=== PATIENT | male | born 1935 | race Caucasian/White ===

== ENCOUNTER 2025-01-09 10:37 | Day surgery (SDC) | payer MEDICARE, OTHER, SELFPAY ==
[2025-01-09] VITALS (7 sets, daily range): BP systolic 104–158; BP diastolic 59–94; BMI 24.5
[2025-01-09 11:22] LABS: Hematocrit 34.8 % (39.0-52.0); Hemoglobin 11.9 g/dL (13.0-18.0); Mean Corp Hgb Conc. 34.2 g/dL (33.0-37.0); Mean Corpuscular Hgb 32.7 pg (27.0-31.0); Mean Corpuscular Volume 95.6 fL (80.0-94.0); Mean Platelet Volume 10.2 fL (7.4-10.4); Platelet Count 109 10^3/uL (130-400); Red Blood Cell Count 3.64 10^6/uL (4.70-6.10); Red Cell Dist. Width 15.1 % (11.5-14.5); White Blood Cell Count 7.2 10^3/uL (4.8-10.8)
[2025-01-09 11:30] LABS: Blood Urea Nitrogen 28 mg/dl (9-20); Calcium 9.3 mg/dl (8.4-10.2); Carbon Dioxide 22 mmol/L (22-30); Chloride 113 mmol/L (98-107); Estimated Creatinine Clearance 44 ml/min; Glucose 162 mg/dl (70-99); Potassium 4.4 mmol/L (3.5-5.1); Sodium 144 mmol/L (135-145); eGFR 58.17
[2025-01-09 11:34] LABS: Glucose - Point of Care 151 mg/dl (70-99)
--- NOTE | 2025-01-09 11:43 | W.ICD.CONTRA ---
Post ICD/FIRE HAZARD INSPECTOR-D
-
History of HI?: Yes
LV Function
Left ventricular function study result?: Ejection Fraction >35% - <40%
ACEI/ARB/ARNI
Patient already on ACEI/ARB/ARNI: Yes
Beta-Lenin
Patient already on Beta Lenin: Yes
--- NOTE | 2025-01-09 11:53 | ITS.CL.ICD ---
Twist Tester - ICD
Implantable Cardioverter Defibrillator
Procedure Report:
ICD GENERATOR CHANGE REPORT
Date of Procedure: January 09, 2025
Primary sheet finisher: Dr. Joe sutherland
PROCEDURES:
1. Removal of ICD Generator, 2. ICD Implant
HISTORY:
ICD at battery depletion/replacement indices
Sustained monomorphic VT (Secondary prevention indication)
Ischemic cardiomyopathy
Life expectancy > 1 year
Initial indication for implant is Secondary prevention
'Time-out' was called and confirmed. The patient was prepped and draped in sterile fashion. Lidocaine with epi was used for local anesthesia. An incision was made along the previous incision and the device and leads were carefully dissected from
the pocket. Hemostasis was obtained with electrocautery. The leads were from the device header and tested using an external analyzer. The pocket was liberally irrigated with antibiotic solution. Once testing (see below) showed adequate
and stable function, the leads were connected to the generator header and the leads and generator were placed within the pocket. The pocket was closed in the typical fashion.
Antibiotic pouch placed.
EXISTING ICD [id number], SN [id number] , Left Pectoral
IMPLANTED ICD: MEDTRONIC [id number], SN: [id number]
EXISTING LEADS:
RA Medtronic 5076-52, SN [id number], RAA
RV Medtronic 0066Y10, SN [id number], RV apical septum
DEVICE TESTING:
Sensing: RA 0.4 m (chronic)V, RV 5.9 mV,
Capture: RA AF/AT, RV 0.75 V@ 0.4 ms
Ohms: RA 494, RV 475
FINAL PROGRAMMING:
Shane Pacing: DDIR 60 - 120 ppm (chronic settings)
Tachy parameters:
VF: 188 bpm, ATP while charging, Shock
VT: 133bpm, iATP, Shock
CONCLUSIONS:
1. Explant of ICD at Elective Replacement Indices
2. Successful implant ICD generator.
3. Normal function of ICD and leads at implant testing.
RECOMMENDATIONS:
1. Observation and consideration for discharge home later today.
2. In-Office wound check in 7 - 10 days.
Copy to:
Dr. Joe sutherland
--- NOTE | 2025-01-09 14:05 | PTCARENOTE ---
PT tolerated gen change without any issues.Came to RR on 4l then ro RA with 100% on PO2. Daughter at bedside and reviewed all instructions using language line. Pressure drsg intact. Instrcted to take off tomorrow afternoon ,but leave the spongy
drsg inplace until appt on 01/16.
== END 2025-01-09 14:09 | disposition home or self-care (01) ==
LOC: CATH 10:37
PROVIDERS: Nurse Practitioner Adult Health; ATTENDING PHYSICIAN Internal Medicine Cardiovascular Disease; FAMILY PHYSICIAN Family Medicine
DX: Z45.02 Encounter for adjustment and management of automatic implantable cardiac defibrillator (principal); I47.29 Other ventricular tachycardia; I25.5 Ischemic cardiomyopathy; I50.22 Chronic systolic (congestive) heart failure; I48.19 Other persistent atrial fibrillation; Z79.82 Long term (current) use of aspirin; Z79.01 Long term (current) use of anticoagulants; Z79.4 Long term (current) use of insulin
CPT/HCPCS: 33263; 80048; 82962; 85027; C1721